=== PATIENT | male | born 1985 | race Caucasian/White ===

== ENCOUNTER 2023-09-29 19:20 | Emergency (ER) | payer BC, SELFPAY ==
[2023-09-29 19:21] VITALS: BP 146/91; PULSE 109; RESP 18; TEMP 37.3; O2SAT 97; BMI 36.1
--- NOTE | 2023-09-29 19:23 | ED.GENADULT ---
HPI - General Adult General Chief complaint: Allergic Reaction Stated complaint: stung by bee, possible allergic reaction Time Seen by Provider: 09/29/23 19:30 Source: patient Mode of arrival: ambulatory Limitations: no limitations History of Present Illness ED Provider: Abner TERRY HPI narrative: 37-year-old male presents status post bee sting to right forearm that occurred at approximately 15:00 today, shortly after the sting, patient took 25 mg of Benadryl. Since then he states he has been having worsening itchy rash, and feels like his throat may be closing. He reports this is the 3rd time he is gotten stung by a bee in it seems to be getting worse every time he is gotten stung. He has not yet seen an allergy and immunology doctor. He does not have an EpiPen at home. Denies chest pain, shortness of breath, nausea, vomiting, abdominal pain, headache, vision changes, dizziness and weakness Related Data Previous Rx's ?Medication ?Instructions ?Recorded diphenhydramine HCl 25 mg capsule 25 mg PO TID PRN allergic reaction 09/29/23 (Benadryl) #20 caps prednisone 20 mg tablet 40 mg (2 x 20 mg) PO DAILY 5 days 09/29/23 #10 tabs Allergies Allergy/AdvReac Type Severity Reaction Status Date / Time bee pollen [bee stings] Allergy Hives Verified 09/29/23 19:24 Review of Systems Review of Systems: Yes all other systems are reviewed and are negative PMFSH Past Medical History Attestation statement: The following information was validated with the patient. Source: old records reviewed and nursing notes reviewed Social History Social History Smoked in Last 30 Days: No Use of substances other than those prescribed or required for medical reasons: No Advance Directives: No Advance Directives Information Provided: No Do you have a plan to hurt others: No Plan Physical Exam ED Vital Signs: Vital Signs - 24 hr 09/29/23 19:21 09/29/23 19:32 Temperature 99.1 F 98.4 F Pulse Rate 109 H 100 Respiratory Rate 18 22 H Blood Pressure 146/91 H 122/72 Pulse Oximetry 97 95 Oxygen Delivery Method Room Air Room Air BMI result Body Mass Index 36.1 vss Appearance: Alert.? Oriented X3.? No acute distress.? Head: Normocephalic, atraumatic, no step-offs or deformities Eyes: Pupils equal, round and reactive to light.? Neck: Normal inspection.? Neck supple.?Patient airway. Speaking in full sentences controlling secretions well. CVS: Normal heart rate and rhythm.? Pulses normal.? Respiratory: No respiratory distress.? Breath sounds normal.? Abdomen: Soft and nontender.? Skin: Skin warm and dry.? Normal skin color.? Normal skin turgor.? + right wheel to right forearm large and urticaria to b/l ue, trunk and le. Extremities: No lower extremity edema.? No calf ttp. 5/5 strength to bilateral upper and lower extremities Back: No midline tenderness, no C-spine tenderness, full range of motion, no CVA tenderness bilaterally Neuro: Oriented X 3.? No motor deficit.? No sensory deficit. CN 2-12 intact Course Course Course Narrative: RME performed by Vickie Gibbs PA-C. Patient is a 37 year old assigned male at presenting to the emergency department after being stung by a bee. Patient states that he was stung by a bee and feels as though his through is more swollen than usual and has hives on his skin. Detailed physical exam and review of systems are deferred to the power digger operator. edge bonder made aware of patient. Reevaluation(s) Reevaluation #1: Patient doing well vital signs stable, saturating 97% on room air. Patent airway. Patient feeling better. EpiPen education gone over with patient. Educated patient on diagnosis and treatment plan, answered all question, patient verbalizes understanding. At this time patient will be discharged home, advised to return with new or worsening symptoms. Educated on worrisome signs and symptoms and when to return. At this time I feel comfortable discharge home. Time: 20:43 Medications Administered Discontinued Medications Generic Name Dose Route Start Last Admin Trade Name Freq PRN Reason Stop Dose Admin Dexamethasone Sodium Phosphate 10 mg 09/29/23 19:34 09/29/23 19:41 Dexamethasone Sod Phosphate 10 Mg/Ml Vial IVPUSH 09/29/23 19:35 10 mg ONCE ONE Administration Diphenhydramine HCl 50 mg 09/29/23 19:34 09/29/23 19:42 Diphenhydramine Hcl 50 Mg/Ml Vial IVPUSH 09/29/23 19:35 50 mg ONCE ONE Administration Famotidine 20 mg 09/29/23 19:34 09/29/23 19:42 Famotidine/Pf 20 Mg/2 Ml Vial IVPUSH 09/29/23 19:35 20 mg ONCE ONE Administration Medical Decision Making Medical Decision Making MDM Narrative: 37-year-old male presents with bee sting to right forearm with subsequent rash throughout body that is itchy. Physical exam? + right wheel to right forearm large and urticaria to b/l ue, trunk and le. History and physical exam concerning for allergic reaction with urticaria. Unlikely anaphylaxis. No signs of acute respiratory distress. Patent airway. No signs of necrosis, SJS, TEN Plan at this time Benadryl, Decadron, Pepcid. Educated on EpiPen use. Patient will likely be discharged home with 1. Differential Diagnosis Differential Diagnoses: The differential diagnosis associated with the presentation includes History and physical exam concerning for allergic reaction with urticaria. Unlikely anaphylaxis. No signs of acute respiratory distress. Patent airway. No signs of necrosis, SJS, TEN Admission/Observation Consideration of admission/observation: Escalation of care including admission/observation considered Un likely Prescription Management I considered prescription management with: Other (epipen and education on use discussed ) Critical Care Time Critical Care Time Critical Care Time: Yes Total Critical Care Time: 35 Attestation: I attest to this time spent taking care of the patient, obtaining history, physical, reviewing labs, imaging, speaking to my attending, specialist or hospitalist. Discharge Plan Discharge Clinical Impression: Allergic reaction, Urticaria Patient Disposition: Home, Self-Care Instructions: Urticaria (ED), Acute Rash (ED), General Allergic Reaction (ED), Allergy Testing (ED) Additional Instructions: Take your medications as prescribed. If you were prescribed antibiotics today, it is important that you take your medication to their entirety, do not skip any doses, do not finish them early. Follow-up with your primary care provider this week. Return to the emergency department with new or worsening symptoms. Such as fevers, chills, chest pain, shortness of breath, nausea, vomiting, dizziness, headache, vision changes, lethargy In case of emergency call 911 Please follow-up with allergy and immunology How to use an EpiPen: ? Place the orange tip against the middle of the outer thigh. ? Swing and push the auto-injector firmly into the thigh until it ?clicks? ? Hold firmly in place for three seconds?count slowly, ?1, 2, 3? An EpiPen has been sent to your pharmacy this should only be used in severe emergency such as inability to breathe trouble speaking, shortness breath or any signs of anaphylaxis as discussed. If he use an EpiPen it is crucial you come in to an emergency department to be evaluated as you can have a rebound effect. Please follow-up with an allergy doctor. Prescriptions: New diphenhydramine HCl [Benadryl] 25 mg capsule 25 mg PO TID PRN (Reason: allergic reaction) Qty: 20 0RF prednisone 20 mg tablet 40 mg PO DAILY 5 Days Qty: 10 0RF [facility]errals: [facility] [Outside] - 1 week Margarito Simms SENIOR CYTOGENETIC TECHNOLOGIST-BC [Primary Care Provider] - 2 days Stand Alone Forms: Work/School Release Print Language: Togolese
[2023-09-29 19:32] VITALS: BP 122/72; PULSE 100; RESP 22; TEMP 36.9; O2SAT 95
[2023-09-29] MEDS: dexAMETHasone sod phosphate 10 MG/ML VIAL IVPUSH (19:41)
[2023-09-29] MEDS: diphenhydrAMINE HCL 50 MG/ML VIAL IVPUSH (19:42)
[2023-09-29] MEDS: Famotidine/PF 20 MG/2 ML VIAL IVPUSH (19:42)
[2023-09-29 21:00] VITALS: BP 122/72; PULSE 100; RESP 22; TEMP 36.9; O2SAT 95
== END 2023-09-29 21:01 | disposition home or self-care (01) ==
PROVIDERS: Emergency Provider Emergency Medicine; PCP Nurse Practitioner Family
DX: L50.0 Allergic urticaria (principal); T63.441A Toxic effect of venom of bees, accidental (unintentional), initial encounter
CPT/HCPCS: 96374; 96375; 99284; J1100; J1200

== ENCOUNTER 2023-10-10 13:00 | Outpatient (AMB) | payer BC, SELFPAY ==
--- NOTE | 2023-10-10 13:03 | MHC.PC.OV ---
Vital Signs 10/10/23 13:06 Height 5 ft 8 in Weight 232 lb BMI 35.3 BP 140/100 H Blood Pressure Location Lt brachial Position Sitting Pulse 68 Pulse Source Pulse Oximeter Pulse Oximetry (%) 96 Oxygen Delivery Method Room Air Intake Visit Reasons: Re establish care, requesting physical Intake Note: Patient here to re establish care. Allergies bee pollen [bee stings] Allergy (Verified 10/10/23 13:48) Hives Tobacco use date assessed: 10/10/23 Dental Screening Dental Screen Date: 10/10/23 Did you have a dental visit in the last 12 months?: Yes Did you have a dental problem in the last 6 months where you did not have access to dental care?: No Was dental information given to patient?: Patient has dentist HPI Re establish care, requesting physical HPI Details Pt is here for a PE. Will order labs. Pt's blood pressure is elevated today. Will have pt monitor his blood pressure at home and drop off readings. Pt reports that he is feeling hungry and shaky today. [facility], [facility] Social History Housing: House Patient Tobacco Use Status: Never used Tobacco service: No Current occupational status: employed Current occupation: [employer] Current occupational exposures/hazards: No Cognitive needs: No Hearing needs: No Vision needs: Yes Questionnaire PHQ-9 Over the last 2 weeks, how often have you been bothered by any of the following problems? 1. Little interest or pleasure in doing things: not at all 2. Feeling down, depressed, or hopeless: not at all 3. Trouble falling or staying asleep, or sleeping too much: not at all 4. Feeling tired or having little energy: not at all 5. Poor appetite or overeating: not at all 6. Feeling bad about yourself - or that you are a failure or have let yourself or your family down: not at all 7. Trouble concentrating on things, such as reading the newspaper or watching television: not at all 8. Moving or speaking so slowly that other people could have noticed. Or the opposite - being so fidgety or restless that you have been moving around a lot more than usual: not at all 9. Thoughts that you would be better off or of hurting yourself in some way: not at all Total score: 0 Depression Screening Interpretation: Negative Depression Screening Done: Yes 37774 - PHQ-9 Billing: Yes Source: Developed by Drs. Akash Goldman, Gracie Garcia, Rodriguez Pruitt and colleagues, with an educational doron from [employer]. Thrive Questionnaire Date Thrive assessed: 10/10/23 I am a: Patient What is your living situation today?: I have a steady place to live Within the past 12 months, did the food you bought not last and you didn't have the money to get more?: Never true Within the past 12 months, did you worry whether your food would run out before you got money to buy more?: Never true Do you have trouble paying for medicines?: No Do you have trouble getting transportation to medical appointments?: No Do you have trouble paying your heating and electricity bill?: No Do you have trouble taking care of your child, family member or friend?: No Do you have trouble with day-to-day activities such as bathing, preparing meals, shopping, managing finances, etc.?: No Are you currently unemployed and looking for a job?: No Are you interested in more education?: No Currently or been in a relationship where the following occur: No concerns reported THRIVE Score: 0 AUDIT C Alcohol Use Questionnaire (AUDIT-C) 1. How often do you have a drink containing alcohol?: Monthly or less 2. How many drinks containing alcohol do you have on a typical day when you are drinking?: 1 or 2 3. How often do you have six or more drinks on one occasion?: Never Total Score: 1 Score Reviewed/Action Taken: No FLIP-7 AMB Questionnaire FLIP-7 Date FLIP - 7 assessed: 10/10/23 Feeling nervous, anxious, or on edge: 0 = Not at all Not being able to stop or control worryin = Not at all Worrying too much about different things: 0 = Not at all Trouble relaxin = Not at all Being so restless that it is hard to sit still: 0 = Not at all Becoming easily annoyed or irritable: 0 = Not at all Feeling afraid as if something awful might happen: 0 = Not at all Total FLIP-7 score (0-4 normal; 5-9 mild; 10-14 moderate; 15-21 severe): 0 Source: Developed by Gracie Mcmahon Kurt Kroenke and colleagues, with an educational doron from [employer]. FLIP-7 Assessment Billing FLIP-7 Assessment Tool: FLIP-7 Assessment 98811 Review of Systems Const Denies chills and Denies fever(s) Eyes Denies blurry vision ENT Denies vertigo, Denies dizziness and Denies sore throat Card Denies chest pain at rest, Denies chest pain with activity, Denies diaphoresis, Denies dyspnea and Denies dyspnea on exertion Resp Denies cough, Denies dyspnea, Denies dyspnea on exertion and Denies wheezing GI Denies abdominal pain, Denies melena, Denies hematochezia, Denies constipation, Denies diarrhea and Denies loose stools Denies hematuria Musc Denies numbness and Denies tingling Skin/Breast Denies lesions Neuro Denies vertigo, Denies dizziness, Denies numbness and Denies tingling Psych Denies anxiety, Denies depression, Denies homicidal ideation, Denies suicidal ideation and Denies other (substance abuse) Aller/Immun Denies wheezing Physical exam (Primary Care) Vital Signs: Last Vital Signs Pulse 68 10/10/23 13:06 BP 140/100 H 10/10/23 13:06 Pulse Ox 96 10/10/23 13:06 Oxygen Delivery Method Room Air 10/10/23 13:06 BMI result Body Mass Index 35.3 Tobacco/Smoking Status: Tobacco use Status Tobacco use date assessed 10/10/23 10/10/23 13:10 Patient Tobacco Use Status Never used Tobacco 10/10/23 13:10 Depression Screening Interpretation: Negative Currently or been in a relationship where the following occur: No concerns reported Const General: cooperative Nutritional Appearance: obese Orientation/consciousness: patient oriented x3 HENMT Head: Yes normal to inspection, Yes normocephalic and Yes atraumatic Ears: TM's normal bilaterally Eyes General: appearance normal, both eyes and all related structures Alignment and Position: alignment normal and position normal Neck Neck: Yes normal visual inspection and Yes no lymphadenopathy Thyroid: Thyroid normal Resp Effort & Inspection: normal respiratory effort Auscultation: clear to auscultation bilaterally Cardio Rate: regular rate Rhythm: regular rhythm Heart sounds: S1 normal heart sound present, S2 normal heart sound present and no murmurs GI Palpation (GI): Soft to palpation and nontender Auscultation: normal bowel sounds Male General Exam: Yes normal external exam Penis: normal penis Scrotum: scrotum normal, testes descended bilaterally and no inguinal hernias Testes: no testicular mass Skin Rashes: no rashes Neuro General: patient oriented x3, moves all extremities, no focal motor deficits and deep tendon reflexes 2+ bilaterally Romberg Test: Negative Psych Appearance: grossly normal Mental Status: mental status grossly normal Speech and movement: Normal speech and movement present Affect: normal affect Attitude: cooperative Thought process: Normal thought process present Thought content: Normal thought content present Insight: Good insight present (Psych) Judgement: Good judgement present (Psych) Assessment and Plan Assessment & Plan (1) Encounter for routine adult physical exam with abnormal findings: Code(s): Z00.01 - Encounter for general adult medical examination with abnormal findings (2) HTN (hypertension): Code(s): I10 - Essential (primary) hypertension Plan: pt will take his BP at home, and drop off values in the near future Plan The patient agreed to the use of a medical reception specialist for this encounter. Scribed for DEB Jacome by hernandez Victor scribe, on 10/10/2023 at 13:15 EST. Orders: Orders Complete Blood Count Auto Diff Today Z00.00 - Encounter for general adult medical examination without abnormal findings TSH reflex Free T4 Today Z00.00 - Encounter for general adult medical examination without abnormal findings UA CC w/rflx Micro + Cult Today Z00.00 - Encounter for general adult medical examination without abnormal findings Lipid Panel Today Z00.00 - Encounter for general adult medical examination without abnormal findings Comprehensive Badger. Panel Fast Today Z00.00 - Encounter for general adult medical examination without abnormal findings Medications: Discontinued diphenhydramine HCl (Benadryl) Discontinued Reason: Patient Completed Course 25 mg PO TID PRN 20 caps 0RF allergic reaction prednisone Discontinued Reason: Patient Completed Course 40 mg (2 x 20 mg) PO DAILY 5 days 10 tabs 0RF Coding Level of Care Code Est Pt Level 3 (27694) New Pt Prev Care 18-39yr(91157 Diagnoses Encounter for routine adult physical exam with abnormal findings Z00.01 HTN (hypertension) I10 Additional Codes FLIP-7 Assessment Billing - FLIP-7 Assessment Tool: FLIP-7 Assessment [id number] ([id number])
[2023-10-10 13:06] VITALS: BP 140/100; PULSE 68; O2SAT 96; BMI 35.3
== END 2023-10-10 13:34 | disposition home or self-care (01) ==
PROVIDERS: PCP Nurse Practitioner Family; Visit Provider Nurse Practitioner Family
DX: Z00.00 Encounter for general adult medical examination without abnormal findings (principal); I10 Essential (primary) hypertension
CPT/HCPCS: 99385

== ENCOUNTER 2024-03-04 13:42 | Outpatient (AMB) | payer BC, SELFPAY ==
--- NOTE | 2024-03-04 13:44 | MHC.PC.OV ---
Vital Signs 03/04/24 13:45 Height 5 ft 8 in Weight 230 lb BMI 35.0 BP 140/90 H Blood Pressure Location Rt brachial Position Sitting Pulse 78 Pulse Source Pulse Oximeter Pulse Oximetry (%) 98 Oxygen Delivery Method Room Air Intake Visit Reasons: 4 month f/u Intake Note: pt is here for 4 month f/up Weight Calculator Required: No Allergies bee pollen [bee stings] Allergy (Verified 03/04/24 13:45) Hives Medication List - Last Reconciled 03/04/24 by RHONA Serra- epinephrine (EpiPen 2-Mac) 0.3 mg (0.3 mL) IM Q4H PRN losartan 25 mg PO DAILY Tobacco use date assessed: 10/10/23 Dental Screening Dental Screen Date: 10/10/23 HPI 4 month f/u HPI Details History of Present Illness The patient is a 38-year-old male presenting with concerns regarding elevated blood pressure and occasional heartburn. The patient reports that he has not previously been on any medication for blood pressure. He noted that today his blood pressure was 140/90 mmHg, which he described as slightly elevated. He has a family history of hypertension, which may contribute to his condition. The patient describes a sensation similar to heartburn, occurring intermittently and without specific triggers, which he associates with eating. He occasionally experiences tiredness during exercise, attributing it to being out of shape rather than cardiac concerns. There have been no prior episodes of chest pain, shortness of breath, or arm pain. The patient also mentions smoking marijuana and acknowledges feeling out of shape, which may be impacting his exercise tolerance. Social History - Family history of hypertension. - Currently sedentary with attempted treadmill exercise. - Reports marijuana use. Review of Systems - Cardiovascular: Denies chest pain and arm pain. - Respiratory: Denies shortness of breath. - Gastrointestinal: Reports occasional heartburn sensation after eating. Physical Exam - Cardiac- Heart sounds normal, S1 is soft, no murmurs detected. - Respiratory- Lungs clear to auscultation without wheezes or rales. - Extremities- No swelling observed. -A+Ox3 Results - Tests and Diagnostics: EKG performed to evaluate cardiac electrical activity; results pending discussion. Plan - Essential Hypertension: Initiate antihypertensive therapy with a low dose of medication 25 mg once daily). The patient is advised to start the medication at night for improved adherence. Evaluate blood pressure trend in two weeks post-initiation and repeat labs after this period. - Gastroesophageal Reflux Disease GERD): No specific intervention was recommended at this time as symptoms do not appear to significantly impact daily activities; monitor symptoms and consider dietary modifications as needed. Pt will contact me with BPs sustaining above 140/90 Patient was informed and verbally consented to the use of an ambient scribe for clinic note documentation during this visit. Discussion Notes I discussed with the patient the diagnosis of essential hypertension and the potential benefits of starting a low-dose antihypertensive medication to manage his blood pressure. We reviewed the family history of hypertension and its contribution to his condition. I reassured him about the absence of significant findings on his initial examination and EKG, which showed no immediate cardiac concerns (NSR). We discussed that the heartburn-like sensation could be related to diet and lifestyle, potentially indicative of gastroesophageal reflux disease, and that it warrants monitoring. Patient Instructions - Begin taking the prescribed antihypertensive medication at 25 mg once daily, preferably at night. - Schedule follow-up labs to assess blood pressure control two weeks after starting the medication. - Monitor diet and lifestyle to help reduce heartburn symptoms; consider dietary modifications. - Engage in regular physical exercise tailored to his comfort level to improve cardiovascular health. - Return for further evaluation if he experiences any alarming symptoms such as chest pain or shortness of breath. [facility] Surgical History (Updated 03/04/24 @ 13:46 by Jeffrey Rosas [facility]) No pertinent past surgical history Family History (Updated 03/04/24 @ 13:47 by Jeffrey Rosas CMA) Mother No problems noted. Father High blood pressure Social History Housing: House Patient Tobacco Use Status: Never used Tobacco service: No Current occupational status: employed Current occupation: [employer] Current occupational exposures/hazards: No Cognitive needs: No Hearing needs: No Vision needs: Yes Questionnaire PHQ-9 Over the last 2 weeks, how often have you been bothered by any of the following problems? 1. Little interest or pleasure in doing things: not at all 2. Feeling down, depressed, or hopeless: not at all 3. Trouble falling or staying asleep, or sleeping too much: not at all 4. Feeling tired or having little energy: not at all 5. Poor appetite or overeating: not at all 6. Feeling bad about yourself - or that you are a failure or have let yourself or your family down: not at all 7. Trouble concentrating on things, such as reading the newspaper or watching television: not at all 8. Moving or speaking so slowly that other people could have noticed. Or the opposite - being so fidgety or restless that you have been moving around a lot more than usual: not at all 9. Thoughts that you would be better off or of hurting yourself in some way: not at all Total score: 0 Source: Developed by Drs. Akash Goldman, Gracie Garcia, Rodriguez Pruitt and colleagues, with an educational doron from [employer]. Thrive Questionnaire Date Thrive assessed: 10/10/23 I am a: Patient What is your living situation today?: I have a steady place to live Within the past 12 months, did the food you bought not last and you didn't have the money to get more?: Often true Within the past 12 months, did you worry whether your food would run out before you got money to buy more?: Never true Do you have trouble paying for medicines?: No Do you have trouble getting transportation to medical appointments?: No Do you have trouble paying your heating and electricity bill?: No Do you have trouble taking care of your child, family member or friend?: No Do you have trouble with day-to-day activities such as bathing, preparing meals, shopping, managing finances, etc.?: No Are you currently unemployed and looking for a job?: No Are you interested in more education?: No Please select the resources that you would like help with: None Currently or been in a relationship where the following occur: No concerns reported THRIVE Score: 1 AUDIT C Alcohol Use Questionnaire (AUDIT-C) 1. How often do you have a drink containing alcohol?: 2-4 times a month 2. How many drinks containing alcohol do you have on a typical day when you are drinking?: 3 or 4 3. How often do you have six or more drinks on one occasion?: Less than monthly Total Score: 4 FLIP-7 AMB Questionnaire FLIP-7 Date FLIP - 7 assessed: 10/10/23 Feeling nervous, anxious, or on edge: 0 = Not at all Not being able to stop or control worryin = Not at all Worrying too much about different things: 0 = Not at all Trouble relaxin = Not at all Being so restless that it is hard to sit still: 0 = Not at all Becoming easily annoyed or irritable: 0 = Not at all Feeling afraid as if something awful might happen: 0 = Not at all Total FLIP-7 score (0-4 normal; 5-9 mild; 10-14 moderate; 15-21 severe): 0 Source: Developed by Drs. Akash Goldman, Gracie Garcia, Rodriguez Pruitt and colleagues, with an educational doron from [employer]. Physical exam (Primary Care) Vital Signs: Last Vital Signs Pulse 78 03/04/24 13:45 BP 140/90 H 03/04/24 13:45 Pulse Ox 98 03/04/24 13:45 Oxygen Delivery Method Room Air 03/04/24 13:45 BMI result Body Mass Index 35.0 Tobacco/Smoking Status: Tobacco use Status Tobacco use date assessed 10/10/23 03/04/24 13:48 Patient Tobacco Use Status Never used Tobacco 03/04/24 13:48 PHQ-9: PHQ-9 Score PHQ-9: Total score 0 03/04/24 13:48 Thrive Assessment: Date of Thrive Assessment Date Thrive assessed 10/10/23 03/04/24 13:48 Currently or been in a relationship where the following occur: No concerns reported Coding Level of Care Code Est Pt Level 3 (46897) Diagnoses HTN (hypertension) I10 Chest discomfort R07.89 Assessment & Plan Assessment & Plan (1) HTN (hypertension): Code(s): I10 - Essential (primary) hypertension Category: Medical (2) Chest discomfort: Code(s): R07.89 - Other chest pain Category: Medical Plan . Orders: Orders AMB EKG-In Office Today I10 - Essential (primary) hypertension, R07.89 - Other chest pain Medications: New losartan 25 mg PO DAILY 90 tabs 0RF
[2024-03-04 13:45] VITALS: BP 140/90; PULSE 78; O2SAT 98; BMI 35.0
== END 2024-03-04 14:44 | disposition home or self-care (01) ==
PROVIDERS: PCP Nurse Practitioner Family; Visit Provider Nurse Practitioner Family
DX: I10 Essential (primary) hypertension (principal); R07.89 Other chest pain

== ENCOUNTER → 2024-03-04 13:42 | Outpatient (BNVA) | payer BC, SELFPAY | PROVIDERS: PCP Nurse Practitioner Family; Visit Provider Nurse Practitioner Family ==

== ENCOUNTER 2024-09-28 10:38 | Outpatient (REF) | payer BC, SELFPAY ==
[2024-09-28 13:59] LABS: MANUAL DIFF FLAG NO
[2024-09-28 14:08] LABS: Basophils Absolute Auto 0.1 X10*3/uL (0.0-0.2); Basophils Percent Auto 0.9 % (0-2); Eosinophils Absolute Auto 0.1 X10*3/uL (0.0-0.4); Eosinophils Percent Auto 0.8 % (0-4); Hematocrit 44.6 % (42.0-52.0); Hemoglobin 15.5 g/dl (14.0-18.0); Imm Gran Abs Auto 0.01 X10*3/uL (0.00-0.03); Imm Gran Pct Auto 0.1 % (0.0-0.4); Lymphocytes Absolute Auto 2.1 X10*3/uL (1.2-4.9); Lymphocytes Percent Auto 28.3 % (20-40); Mean Corpuscular HGB Conc 34.8 g/dl (31.0-36.0); Mean Corpuscular Hemoglobin 28.8 pg (27.0-33.0); Mean Corpuscular Volume 82.7 fL (80.0-98.0); Mean Platelet Volume 10.6 fL (9.4-12.4); Monocytes Absolute Auto 0.6 X10*3/uL (0.1-1.2); Monocytes Percent Auto 8.5 % (2-11); Neutrophils Absolute Auto 4.5 x10*3/uL (2.0-8.3); Neutrophils Percent Auto 61.4 % (45-73); Platelet Count 322 X10*3/uL (160-400); Red Blood Count 5.39 X10*6/uL (4.60-5.80); Red Cell Distribution Width 13.1 % (11.0-16.0); White Blood Count 7.4 X10*3/uL (4.8-10.8)
[2024-09-28 14:08] LABS: Appearance Urine Clear; Color Urine Yellow; Glucose Urine UA Negative (Negative); Leukocyte Esterase Urine Negative (Negative); Nitrite Urine Negative (Negative); PH 5.5 (5.0-9.0); Specific Gravity - Urine 1.025 (1.005-1.025); UMIC TRIGGER UACC YES; Urine Blood Large (3+) (Negative); Urine Ketones Negative (Negative); Urine Protein Trace mg/dL (Neg-Trace)
[2024-09-28 14:24] LABS: Bacteria Urine None Seen (None Seen); Hyaline Casts Urine 0-2 /LPF (0-2); Squamous Epithelial Cell Urine 0-2 /HPF (0-2); WBC Urine 0-5 /HPF (0-5)
[2024-09-28 18:10] LABS: Alanine Aminotransferase 34 U/L (0-40); Albumin Level 4.5 g/dL (3.5-5.0); Alkaline Phosphatase 51 U/L (39-117); Anion Gap 14 (12-20); Aspartate Amino Transferase 33 U/L (5-37); Bilirubin Total 0.6 mg/dL (0.0-1.0); Blood Urea Nitrogen 19 mg/dL (9-16); Calcium 9.1 mg/dL (8.4-10.2); Carbon Dioxide 24 mmol/L (22-29); Chloride 106 mmol/L (96-108); Cholesterol 204 mg/dL (<200); Estimated Glomerular Filt Rate > 60; Glucose Fasting 104 mg/dL (60-99); HDL Cholesterol 37 mg/dL (>40); LDL Cholesterol Calculated 150 mg/dL (<100); Potassium 3.8 mmol/L (3.3-5.1); Sodium 140 mmol/L (135-145); Total Protein 7.7 g/dL (6.5-8.0); Triglycerides 85 mg/dL (<150)
[2024-09-28 18:27] LABS: TSH reflex Free T4 1.63 uIU/mL (0.32-4.0)
== END 2024-09-28 10:39 | disposition home or self-care (01) ==
LOC: HO.HMGCLDS 10:38
PROVIDERS: PCP Nurse Practitioner Family; Visit Provider Nurse Practitioner Family
DX: Z00.00 Encounter for general adult medical examination without abnormal findings (principal); Z13.6 Encounter for screening for cardiovascular disorders
CPT/HCPCS: 36415; 80053; 80061; 81001; 84443; 85025

== ENCOUNTER 2024-10-01 10:15 | Outpatient (REF) | payer BC, SELFPAY ==
[2024-10-01 13:24] LABS: Appearance Urine Turbid; Glucose Urine UA Negative (Negative); PH 5.5 (5.0-9.0); Specific Gravity - Urine 1.025 (1.005-1.025); UMIC TRIGGER UACC YES
== END 2024-10-01 10:16 | disposition home or self-care (01) ==
LOC: HO.HMGCLDS 10:15
PROVIDERS: PCP Nurse Practitioner Family; Visit Provider Nurse Practitioner Family
DX: Z00.01 Encounter for general adult medical examination with abnormal findings (principal); R31.29 Other microscopic hematuria; R06.83 Snoring; G47.30 Sleep apnea, unspecified; Z13.31 Encounter for screening for depression; Z13.30 Encounter for screening examination for mental health and behavioral disorders, unspecified
CPT/HCPCS: 81001; 87086; 88112; 96127

== ENCOUNTER 2024-10-01 10:15 | Outpatient (AMB) | payer BC, SELFPAY ==
[2024-10-01 10:18] VITALS: BP 138/82; PULSE 65; O2SAT 95; BMI 36.0
--- NOTE | 2024-10-01 10:18 | MHC.PC.OV ---
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: No Accompanied by: Self / Same As Patient Allergies bee pollen (bee stings) Allergy (Verified 10/01/24 10:19) Hives Medication List - Last Reconciled 10/01/24 by DEB Serra epinephrine (EpiPen 2-Mac) 0.3 mg (0.3 mL) IM Q4H PRN losartan 25 mg PO DAILY Tobacco use date assessed: 10/01/24 Dental Screening Dental Screen Date: 10/01/24 Did you have a dental visit in the last 12 months?: Yes Did you have a dental problem in the last 6 months where you did not have access to dental care?: No Was dental information given to patient?: Patient has dentist HPI Annual PE/follow up HPI Details History of Present Illness The patient is a 38-year-old male presenting for a physical exam and evaluation of his weight and urinary symptoms. The patient has a history of microscopic hematuria, which was evaluated many years ago by a urologist (pt reported). No cystoscopy was performed at that time, and he denies any history of kidney stones. He reports no costovertebral angle tenderness on examination. The patient is overweight, and the importance of proper diet and portion sizes was discussed during the visit. He has never smoked tobacco but occasionally uses marijuana. The patient reports excessive snoring and episodes of apnea during sleep, as observed by his . Health Maintenance - Discussed importance of proper diet and portion sizes for weight management Social History - Substance use: Occasional marijuana use, never smoked tobacco Review of Systems - Genitourinary: Reports microscopic hematuria, denies history of kidney stones - Respiratory: Reports excessive snoring and apnea during sleep denies any cp, sob, blurred vision, urinary issues, constipation, diarrhea., si or hi Physical Exam General: Cooperative, healthy appearing, comfortable, no acute distress, well developed, currently overweight Orientation: Patient oriented x3 Limitations: No limitations Head: Normal to inspection Ears: Hearing grossly normal bilaterally Nose: Normal external nose present Face and sinus: Normal facial exam Eyes: Appearance normal, both eyes and all related structures Neck: Normal visual inspection and Yes full ROM Respiratory: Normal respiratory effort and able to speak in complete sentences. Clear to auscultation bilaterally Cardiovascular: Regular rate and rhythm. Normal S1 and S2 GI: Normal to inspection. Soft to palpation and nontender. No CVA tenderness on exam : Testicles without masses/lesions and no hernias appreciated. History of microscopic hematuria and cyst Skin: No rashes or lesions noted Neuro: Patient oriented x3 Extremities: Normal to inspection Results Plan A comprehensive urinary workup will be conducted, including cytology, urine culture, and another urinalysis, to further evaluate the microscopic hematuria. A CT urogram will be obtained, and the patient will be referred to urology for further assessment. For the patient's excessive snoring and apnea, a referral to sleep medicine will be made for further evaluation and treatment. The patient was advised on the importance of maintaining a proper diet and portion control to address his overweight status. Discussion Notes I discussed with the patient the need for a comprehensive urinary workup, including cytology, urine culture, and urinalysis, to evaluate his microscopic hematuria. I also explained the plan to obtain a CT urogram and refer him to urology for further evaluation. Regarding his snoring and apnea, I recommended a referral to sleep medicine for further evaluation and treatment. We discussed the importance of proper diet and portion control to manage his weight. Patient Instructions - Follow up with urology for further evaluation of urinary symptoms - Attend sleep medicine consultation for snoring and apnea - Maintain a balanced diet and monitor portion sizes to manage weight PFSH Surgical History No pertinent past surgical history Family History Mother No problems noted. Father High blood pressure Social History Housing: House Patient Tobacco Use Status: Never used Tobacco service: No Current occupational status: employed Current occupation: [employer] Current occupational exposures/hazards: No Cognitive needs: No Hearing needs: No Vision needs: Yes Questionnaire PHQ-9 Over the last 2 weeks, how often have you been bothered by any of the following problems? 1. Little interest or pleasure in doing things: not at all 2. Feeling down, depressed, or hopeless: not at all 3. Trouble falling or staying asleep, or sleeping too much: not at all 4. Feeling tired or having little energy: not at all 5. Poor appetite or overeating: not at all 6. Feeling bad about yourself - or that you are a failure or have let yourself or your family down: not at all 7. Trouble concentrating on things, such as reading the newspaper or watching television: not at all 8. Moving or speaking so slowly that other people could have noticed. Or the opposite - being so fidgety or restless that you have been moving around a lot more than usual: not at all 9. Thoughts that you would be better off or of hurting yourself in some way: not at all Total score: 0 Depression Screening Interpretation: Negative Depression Screening Done: Yes 93066 - PHQ-9 Billing: Yes Source: Developed by Drs. Akash Goldman, Gracie Garcia, Rodriguez Pruitt and colleagues, with an educational doron from [employer]. Thrive Questionnaire Date Thrive assessed: 10/01/24 I am a: Patient What is your living situation today?: I have a steady place to live Within the past 12 months, did the food you bought not last and you didn't have the money to get more?: Never true Within the past 12 months, did you worry whether your food would run out before you got money to buy more?: Never true Do you have trouble paying for medicines?: No Do you have trouble getting transportation to medical appointments?: No Do you have trouble paying your heating and electricity bill?: No Do you have trouble taking care of your child, family member or friend?: No Do you have trouble with day-to-day activities such as bathing, preparing meals, shopping, managing finances, etc.?: No Are you currently unemployed and looking for a job?: No Are you interested in more education?: No Please select the resources that you would like help with: None Currently or been in a relationship where the following occur: No concerns reported THRIVE Score: 0 AUDIT C Alcohol Use Questionnaire (AUDIT-C) 1. How often do you have a drink containing alcohol?: 2-4 times a month 2. How many drinks containing alcohol do you have on a typical day when you are drinking?: 5 or 6 3. How often do you have six or more drinks on one occasion?: Less than monthly Total Score: 5 Score Reviewed/Action Taken: Yes FLIP-7 AMB Questionnaire FLIP-7 Date FLIP - 7 assessed: 10/01/24 Feeling nervous, anxious, or on edge: 0 = Not at all Not being able to stop or control worryin = Not at all Worrying too much about different things: 0 = Not at all Trouble relaxin = Not at all Being so restless that it is hard to sit still: 0 = Not at all Becoming easily annoyed or irritable: 0 = Not at all Feeling afraid as if something awful might happen: 0 = Not at all Total FLIP-7 score (0-4 normal; 5-9 mild; 10-14 moderate; 15-21 severe): 0 Source: Developed by Drs. Akash Goldman, Gracie Garcia, Rodriguez Pruitt and colleagues, with an educational doron from [employer]. FLIP-7 Assessment Billing FLIP-7 Assessment Tool: FLIP-7 Assessment 87148 Physical exam (Primary Care) Vital Signs: Last Vital Signs Pulse 65 10/01/24 10:18 BP 138/82 10/01/24 10:18 Pulse Ox 95 10/01/24 10:18 Oxygen Delivery Method Room Air 10/01/24 10:18 BMI result Body Mass Index 36.0 Tobacco/Smoking Status: Tobacco use Status Tobacco use date assessed 10/01/24 10/01/24 10:19 Patient Tobacco Use Status Never used Tobacco 10/01/24 10:19 PHQ-9: PHQ-9 Score PHQ-9: Total score 0 10/01/24 10:19 Depression Screening Interpretation: Negative Thrive Assessment: Date of Thrive Assessment Date Thrive assessed 10/01/24 10/01/24 10:19 Currently or been in a relationship where the following occur: No concerns reported Coding Level of Care Code Est Pt Level 3 (50691) Est Pt Prev Care 18-39y(82683) Diagnoses Microscopic hematuria R31.29 Encounter for routine adult physical exam with abnormal findings Z00.01 Vasectomy evaluation Z30.09 Snores R06.83 Sleep apnea G47.30 Additional Codes LFIP-7 Assessment Billing - FLIP-7 Assessment Tool: FLIP-7 Assessment 60925 ([id number]) PHQ-9 - 86782 - PHQ-9 Billing: Yes ([id number]) Assessment & Plan Assessment & Plan (1) Microscopic hematuria: Code(s): R31.29 - Other microscopic hematuria Category: Medical (2) Encounter for routine adult physical exam with abnormal findings: Code(s): Z00.01 - Encounter for general adult medical examination with abnormal findings Category: Medical (3) Vasectomy evaluation: Code(s): Z30.09 - Encounter for other general counseling and advice on contraception Category: Medical (4) Snores: Code(s): R06.83 - Snoring Category: Medical (5) Sleep apnea: Code(s): G47.30 - Sleep apnea, unspecified Category: Medical Plan . Orders: Orders UA CC w/rflx Micro + Cult Today R31.29 - Other microscopic hematuria Urine Cytology Today R31.29 - Other microscopic hematuria CT urogram Today R31.29 - Other microscopic hematuria Urine Culture Today R31.29 - Other microscopic hematuria Referrals Urology Referral R31.29 - Other microscopic hematuria, Z30.09 - Encounter for other general counseling and advice on contraception Sleep Medicine Referral G47.30 - Sleep apnea, unspecified, R06.83 - Snoring
--- OUTSIDE RECORDS SUMMARY | 2024-10-01 11:22 | XMS_ITS | Data Portability ---
Author Organization [facility], [address] Address [address] [place] [id number] Care Team Providers Care Videogame Tester Name Role Phone [facility] Primary Care Provider Assessment No assessment recorded. Plan of Treatment Reminders Order Date Submit Date Provider Last Modified By Organization Details Last Modified Time Details Appointments None recorded. Lab None recorded. Referral None recorded. Procedures None recorded. Surgeries None recorded. Imaging None recorded. Medication Orders ciprofloxac in 0.3 % eye drops 2022 023 [id number], [address] [place], [address], 09:37:27 Patient TargetsNo targets recorded. Patient Instructions Encounter Date Encounter Id Patient Instructions Last Modified By Organization Details Last Modified Time 10/10/2022 [id number] [place]: care instructions [email or web address] Not available 10/10/2022 09:37:58 allergic conjunctivitis in teens: care instructions [email or web address] Not available 10/10/2022 09:37:58 Aside from havin g an infectious conjunctivitis you may also be having a sensitivity to the drops you were using or to something you came in contact with yesterday while doing yard work. Use the antibiotic drops as prescribed. Take an over the counter antihistamine such as claritin or zyrtec per package instructions. See printed instructions. Follow-up with your doctor or return to [facility] for evaluation if no improvement in 2 days. Cool compresses to your eyes may help reduce the swelling. Seek Emergency Medical evaluation for any worsening symptoms. [email or web address] Not available 10/10/2022 09:41:02 Reason for Referral None Reported. Medical Equipment None Reported. Allergies No known drug allergies Medications Name Sig Start Date Stop Date Status Note LastModified by Organization Details LastModified Time amoxicillin 500 mg capsule TAKE 1 CAPSULE BY MOUTH EVERY 8 HOURS UNTIL FINISHED 10/10 completed Not Available Not Available Not Available ibuprofen 800 mg tablet TAKE 1 TABLET BY MOUTH EVERY 6-8 HOURS NEEDED 10/10 completed Not Available Not Available Not Available ciprofloxac in 0.3 % eye drops INSTILL 1 DROP INTO AFFECTED EYE(S) BY OPHTHALMI C ROUTE EVERY 2 HOURSWHIL E AWAKE FOR 2 DAYS THEN 1 DROP EVERY 4 HRS WHILE AWAKE FOR 5 DAYS 2022 active Not Available Not Available Not Avai lable Flowflex COVID-19 Antigen Home Test kit DIRECTED 10/10 completed Not Available Not Available Not Available Vitals Date Recorded Body height Body mass index (BMI) Body weight Respiratory rate Body temperature Oxygen saturation Oxygen saturation in Arterial blood by Pulse oximetry Heart rate Systolic blood pressure Diastolic blood pressure Provider Name and Address Organization Details Last Updated DateTime 3 172.72 cm 33.5 kg/m2 33859.3 2 g 16 /min 98.1 [degF] 96 % 96 % 74 /min 133 mm[Hg] 93 mm[Hg] LEIGHANN MARINELLI PA - [facility] 3 09:01:09 Social History Question Answer Notes LastModified by Burstly Details LastModified Time Which Illicit Or Recreational Drugs Have You Used? Tyler [email or web address] Information not available 10/10/2022 Sex: Unknown Functional Status Question Answer Note LastModified by Burstly Details LastModified Time How many times per week do you consume alcohol? 1-2 times per week [email or web address] Information not available 10/10/2022 Do you use any illicit or recreational drugs? Yes [email or web address] Information not available 10/10/2022 Do you or have you ever used any other forms of tobacco or nicotine? No [email or web address] Information not available 10/10/2022 What is your level of alcohol consumption? Moderate Information not available 10/10/2022 Mental Status None recorded. Family History Nothing Reported. Medical History Condition Response Gout N Cancer, liver N Thyroid disorder N Hyperthyroidism N Rheumatoid arthritis N GI bleeding N Irritable bowel syndrome N Depression N COPD N Tinnitus, unspecified ear N Pneumonia N Cancer, uterus N Mental disorder, NOS N Headaches/Migraines N Insomia N Alzheimer's disease N Anxiety Disorder N Obesity N Arthritis N Cancer N Stroke N Alcohol abuse N Liver disease N Cancer, bladder N Allergy Food/Medication N Peripheral artery disease N Oxygen dependence N Fibromyalgia N Atrial fibrillation N Tinnitus, right ear N Kidney Disease N Deep vein thrombosis DVT leg N Migraine N Disorder of circulatory system N Anxiety N Cancer, brain N Disease of pancreas N Cancer, lung N Eating disorder, unspecified N Cancer, colon N Crohn's disease N Cancer, cervical N N Cancer, breast N Cancer, skin N Coagulation defect, unspecified N Cataract N Asthma N Congestive heart failure (CHF) N Substance Abuse N Vertigo N Coronary artery disease N Pulmonary Embolism N Cancer, pancreas N Tobacco use disorder N Disease of lung N Allergic rhinitis N Joint disorder, unspecified N Menopause N Back disorder N Drug dependence, unspecified N Hypothyroidism N Disorder kidney N Sickle Cell Anemia N Pollard's Palsy N Cancer, ovarian N Disorder of eye N Cancer, prostate N Allergy Seasonal N Disorder of lymph system N Disorder of urinary system N Drug abuse N Radiculopathy, site unspecified N Myoneural disorder, unspecified N Nervous system disorder N ADHD N High Cholesterol N Post-herpetic neuralgia N Aneurysm, cerebral N Tinnitus, left ear N Prostate hypertrophy, benign N Disorder of skin/subcutaneous N Osteoarthritis N Disorder of ear N Ovarian cysts N Parkinson's disease N Low back pain N Carpal tunnel syndrome N Anemia N Disorder of muscle N Kidney stone N Bipolar affective disorder N Leukemia, unspecified N Diabetes N Disorder involving the immune mechanism N Endocrine disorder N Seizure N Hyperlipidemia N Eczema N Emphysema, unspecified N Lymphoma N Dementia N Diverticulitis N Lupus N Seizure disorder N Reflux/GERD N Sleep Apnea N Cancer, bone N Cardiac arrhythmia, unspecified N Disorder of thyroid N Disorder of bone N Heart Disease N Disorder of brain N Liver Disorder N Aneurysm, aortic N Hypertension N Osteoporosis N Disease of digestive system, unspecified N Gastroesophageal reflux (GERD) N Past Encounters Encounter ID Performer Location Encounter Start Date Encounter Closed Date Diagnosis/Indication Diagnosis SNOMED-CT Code Diagnosis ICD10 Code Diagnosis Note [id number] [address] [address] 06/19/2017 14:46:56 06/19/2017 15:29:52 [id number] Erika Peace MD [address] [place] [address] 10/10/2022 08:23:27 10/10/2022 09:44:56 Acute conjunctivitis of bilateral eyes 8671954704 19849 H10.33 Health Concerns Section Related Observation LastModified by Organization Detai ls LastModified Time None Recorded Concern Status LastModified by Organization Details LastModified Time None Recorded Advance Directives Directive None Recorded Payers Insurance Date Sequence Insurance Name Policy Number Policy Flower Covered Member ID Flower Member ID Guarantor Name 10/27/2022 1 [place] [id number] Michael B Dubuc [id number] Michael Dubuc 10/27/2022 1 [place] [facility] (HMO) [id number] Michael B Dubuc [id number] Michael Dubuc Notes Date Note Type Note Provider Name and Address Organization Details Recorded Time 3 text/html Eye problemsReported bypatient.source of patient informationInformation obtained from patient; Patient arrived at Urgent Care ambulatory Location:bilateral Eye Symptoms:no sensitivity to light; no pain in the eyes; no blurred vision;redness;discharge; Irritation. Mild itching. Severity:moderate Onset/Timindays Context:Son recently had pink-eye. Worked in yard yesterday. No foreign body sensation, eye trauma, contact lens use or chemical exposure. Modifying Factors:nothing gives relief; Used son's polytrim eye drops last night and this morning without improvement.Notes:36 year old male presenting for evaluation of bilateral eye redness, irritation, mild itching, crusty yellow drainage and eyelid swelling for one day. He was working in his yard prior to the onset of symptoms. His son recently was treated for pink-eye. No blurry vision (usually wears glasses but did not have them for eye chart exam). No fever, chills. He has a runny nose. No rash. No foreign body sensation, contact lens use, eye trauma, chemical exposure. No photophobia. Erika Peace MD [address] [place], [place] [address] [place], [address], [place] - [facility] 10/10/2022 09:48:20
== END 2024-10-01 10:57 | disposition home or self-care (01) ==
LOC: HO.HMCC 10:16
PROVIDERS: PCP Nurse Practitioner Family; Visit Provider Nurse Practitioner Family
DX: Z00.01 Encounter for general adult medical examination with abnormal findings (principal); R31.29 Other microscopic hematuria; Z30.09 Encounter for other general counseling and advice on contraception; R06.83 Snoring; G47.30 Sleep apnea, unspecified

== ENCOUNTER 2024-11-12 07:00 | Outpatient (AMB) | payer BC, SELFPAY ==
--- NOTE | 2024-11-12 07:58 | MHC.PC.OV ---
Intake Visit Reasons: medication Allergies bee pollen (bee stings) Allergy (Verified 11/12/24 07:59) Hives Medication List - Last Reconciled 11/12/24 by DEB Serra epinephrine (EpiPen 2-Mac) 0.3 mg (0.3 mL) IM Q4H PRN losartan 25 mg PO DAILY semaglutide (weight loss) (Wegovy) 0.25 mg (0.5 mL) subcut QWEEK Tobacco use date assessed: 10/01/24 Dental Screening Dental Screen Date: 10/01/24 HPI medication HPI Details History of Present Illness The patient is a 39-year-old male presenting for a telehealth consultation to discuss weight loss medication. He reports contacting his pharmacy and confirms that Wegovy is covered by his insurance. His BMI is above 36, classifying him as obese, and he denies any family history of thyroid cancer or personal history of pancreatitis. The patient hopes that the medication will help him initiate healthier eating habits and reduce portion sizes. He aims to eventually manage his weight loss independently without medication. Medication may eventually help with his snoring (due to weight loss) Review of Systems - Endocrine: Denies family history of thyroid cancer. - Gastrointestinal: Denies history of pancreatitis. -denies any cp or sob Plan The patient will be prescribed Wegovy to assist with weight loss, as it is covered by his insurance. The patient is advised to use this medication as a tool to help initiate healthier eating habits and reduce portion sizes. He is encouraged to aim for long-term weight management without reliance on medication. The patient will contact the clinician with any further questions or concerns. Discussion Notes I discussed with the patient the use of Wegovy as a weight loss medication, confirming its coverage by his insurance. We talked about using the medication to help establish healthier eating habits and reduce portion sizes. The patient understands the goal of eventually managing weight loss independently without medication. Patient Instructions - Take Wegovy as prescribed to assist with weight loss. - Focus on establishing healthier eating habits and reducing portion sizes. - Contact the clinician with any questions or concerns. [facility] Surgical History No pertinent past surgical history Family History Mother No problems noted. Father High blood pressure Social History Housing: House Patient Tobacco Use Status: Never used Tobacco service: No Current occupational status: employed Current occupation: [employer] Current occupational exposures/hazards: No Cognitive needs: No Hearing needs: No Vision needs: Yes Questionnaire Thrive Questionnaire Date Thrive assessed: 10/01/24 I am a: Patient What is your living situation today?: I have a steady place to live Within the past 12 months, did the food you bought not last and you didn't have the money to get more?: Never true Within the past 12 months, did you worry whether your food would run out before you got money to buy more?: Never true Do you have trouble paying for medicines?: No Do you have trouble getting transportation to medical appointments?: No Do you have trouble paying your heating and electricity bill?: No Do you have trouble taking care of your child, family member or friend?: No Do you have trouble with day-to-day activities such as bathing, preparing meals, shopping, managing finances, etc.?: No Are you currently unemployed and looking for a job?: No Are you interested in more education?: No Please select the resources that you would like help with: None Currently or been in a relationship where the following occur: No concerns reported THRIVE Score: 0 LFIP-7 AMB Questionnaire FLIP-7 Date FLIP - 7 assessed: 10/01/24 Source: Developed by Drs. Akash Goldman, Gracie Garcia, Rodriguez Pruitt and colleagues, with an educational doron from [employer]. Physical exam (Primary Care) Tobacco/Smoking Status: Tobacco use Status Tobacco use date assessed 10/01/24 10/01/24 10:19 Patient Tobacco Use Status Never used Tobacco 10/01/24 10:19 Thrive Assessment: Date of Thrive Assessment Date Thrive assessed 10/01/24 10/01/24 10:19 Currently or been in a relationship where the following occur: No concerns reported Telehealth Telehealth Telehealth [facility] Location of provider rendering services: practice address Location of patient: address on file Patient Identification confirmed using: Name, : Yes Telehealth method: video Patient verbally consented to treatment: Yes Patient verbally consented to billing insurance company: Yes Patient informed of any privacy concerns related to visit: Yes Minutes spent on Phone/Video with Pt.: 10 Coding Level of Care Code Tele Est Pt Level 3 (42859) Diagnoses Obesity (BMI 30-39.9) E66.9 Snores R06.83 Assessment & Plan Assessment & Plan (1) Obesity (BMI 30-39.9): Code(s): E66.9 - Obesity, unspecified Category: Medical (2) Snores: Code(s): R06.83 - Snoring Category: Medical Plan . Medications: New semaglutide (weight loss) (Jacquelinevedu) administer weeks 1 through 4 of therapy 0.25 mg (0.5 mL) subcut QWEEK 2 mL 0RF
== END 2024-11-12 09:17 | disposition home or self-care (01) ==
LOC: HO.HMCC 07:00
PROVIDERS: PCP Nurse Practitioner Family; Visit Provider Nurse Practitioner Family
DX: R06.83 Snoring (principal); E66.9 Obesity, unspecified

== ENCOUNTER 2024-12-10 15:19 | Outpatient (AMB) | payer BC, SELFPAY ==
--- NOTE | 2024-12-10 15:25 | MHC.OFFVIS ---
Intake Visit Reasons: microscopic hematuria Intake Note: Patient is present for MICROSCOPIC HEMATURIA Urology Medication:NONE Antibiotic Allergy:NONE Blood Thinner:NONE TODAY'S PVR:0ML'S Toggler Required: No Allergies bee pollen (bee stings) Allergy (Verified 12/10/24 21:02) Hives Medication List - Last Reconciled 12/10/24 by RHONA Mahoney-KYLE epinephrine (EpiPen 2-Mac) 0.3 mg (0.3 mL) IM Q4H PRN losartan 25 mg PO DAILY semaglutide (weight loss) 0.5 mg (0.5 mL) subcut QWEEK HPI Comments Details: Michael is a pleasant 39-year-old male patient of Dr. Willis. He presents to the office today as a new patient for microscopic hematuria as well as vasectomy evaluation. He reports noting over the last couple years he has been told he has had microscopic hematuria. He reports most recently as followed up with his PCP and recommendations were made for urology referral for further assessment evaluation. 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 He denies any known workplace chemical exposure. In office urinalysis results reviewed with the patient today 3+ microscopic hematuria. When asked he denies any bothersome urinary issues. He denies urinary urgency, urinary frequency, incontinence, nocturia, hematuria, dysuria, foul smelling urine, changes to urinary stream, flank pain, fever, and or chills. He is happy with his current voiding parameters. We did discuss potential causes of microscopic hematuria. I discussed reasons for blood in the urine may include but are not limited to kidney stones, cancer in the urinary tract, BPH, kidney stone disease or inflammatory conditions of the urinary tract. I have discussed workup to include cystoscopy evaluation. Vasectomy evaluation The patient presents for vasectomy consultation.? 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 The vasectomy may be complicated due to a history of no complicating issues. Patient education has been provided via AUA video, via printed information, risks of failure, recovery time, bruising and potential pain syndrome have been stressed Discussion today focused on the presence of vasectomy and the risks, benefits and alternatives that are available. Vasectomy as intended as a permanent form of control. Printed information and literature was provided to the patient. Overall there is a one in 2500 failure rate. This can occur at any time after vasectomy. Risks were discussed highlighting hematoma, spermatocele, epididymal congestion, development of sperm antibodies, and development of chronic pain estimated between 1-5%. The procedure was reviewed in detail. Anatomical diagrams of the male genitalia were used to explain the location of the vas deferens. The vas deferens will be transected, the proximal end will be cauterized, a metal clip would be applied to separate the 2 vas deferens ends. It was explained the procedure will be done in the office and takes approximately 10-15 minutes. Less common problems that arise with vasectomy include hematoma, bleeding, allergic reaction to anesthetic, epididymal infection, epididymal congestion, scrotal discomfort, spermatic leak, spermatic granuloma and the possibility of antisperm antibodies. He understands these risks and wishes to proceed. Consent was signed at the office today. He also understands that it takes 12 weeks for sperm to fully clear the system. He will need to provide a semen sample at 12 weeks and if this is not clear a 2nd sample at 16 weeks. Medical clearance to stop using protection will only be provided if he satisfies published criteria for sperm clearance. [facility] Surgical History No pertinent past surgical history Family History Mother No problems noted. Father High blood pressure Social History Housing: House Patient Tobacco Use Status: Never used Tobacco service: No Current occupational status: employed Current occupation: [employer] Current occupational exposures/hazards: No Cognitive needs: No Hearing needs: No Vision needs: Yes Review of Systems Const All systems reviewed & are unremarkable except as noted in HPI and below Physical Exam Const General: cooperative, healthy appearing, comfortable, no acute distress, well developed, alert and awake Nutritional Appearance: overweight Orientation/consciousness: patient oriented x3 Limitations: no limitations HEENT Head: Yes normal to inspection, Yes normocephalic and Yes atraumatic Ears: hearing grossly normal bilaterally Eyes General: appearance normal, both eyes and all related structures Neck Neck: Yes normal visual inspection and Yes trachea midline Chest Chest palpation & inspection: normal inspection of the chest Resp Effort & Inspection: normal respiratory effort and able to speak in complete sentences Cardio Rate: regular rate GI Inspection: Yes normal to inspection General: Yes no CVA tenderness Back/Spine/Pelvis Back: no CVA tenderness Skin General skin exam: no rashes or lesions noted Neuro General: patient oriented x3 Extrem General: Yes normal to inspection Psych Appearance: grossly normal and well kempt Mental Status: mental status grossly normal Speech and movement: Normal speech and movement present and Clear speech present Affect: normal affect Attitude: cooperative Thought process: Normal thought process present Thought content: Normal thought content present Insight: Fair insight present (Psych) Judgement: Fair judgement present (Psych) Office Procedures Post Void Residual Post Residual Void Post Void Residual (PVR): 0 43227-Upcn Void Residual by ultrasound Results AMB Urinalysis, Automated UA Leukoctes 0 Devang/uL Last Edit by NAHUN Vizcarra on 12/10/24 16:00 UA Nitrite Negative Last Edit by NAHUN Vizcarra on 12/10/24 16:00 UA Urobilinogen 0.2 mg/dL Last Edit by NAHUN Vizcarra on 12/10/24 16:00 UA Protein 15 mg/dL Last Edit by NAHUN Vizcarra on 12/10/24 16:00 UA pH 6.0 Last Edit by NAHUN Vizcarra on 12/10/24 16:00 UA Blood 200 Samy/uL Last Edit by NAHUN Vizcarra on 12/10/24 16:00 UA Specific [place] 1.025 Last Edit by NAHUN Vizcarra on 12/10/24 16:00 UA Ketone Negative Last Edit by NAHUN Vizcarra on 12/10/24 16:00 UA Bilirubin 0 mg/dL Last Edit by NAHUN Vizcarra on 12/10/24 16:00 UA Glucose 0 mg/dL Last Edit by NAHUN Vizcarra on 12/10/24 16:00 Results Reviewed Results Reviewed: Laboratory Last Values Urine pH (Auto) 6.0 12/10/24 15:59 Specific [place] (Auto) 1.025 12/10/24 15:59 Urine Protein (Auto) 15 mg/dL 12/10/24 15:59 Glucose (UA)(Auto) 0 mg/dL 12/10/24 15:59 Urine Ketones (Auto) Negative 12/10/24 15:59 Urine Blood (Auto) 200 Samy/uL 12/10/24 15:59 Urine Nitrite (Auto) Negative 12/10/24 15:59 Urine Bilirubin (Auto) 0 mg/dL 12/10/24 15:59 Urine Urobilinogen (Auto) 0.2 mg/dL 12/10/24 15:59 Leukocyte Esterase (Auto) 0 Devang/uL 12/10/24 15:59 Assessment & Plan Assessment & Plan (1) Microscopic hematuria: Code(s): R31.29 - Other microscopic hematuria Category: Medical (2) Vasectomy evaluation: Code(s): Z30.09 - Encounter for other general counseling and advice on contraception Category: Medical (3) Anxiety about health: Code(s): R45.89 - Other symptoms and signs involving emotional state Category: Medical Plan In office urinalysis results reviewed with the patient today; as noted above; will send for urine cytology. We did discussed potential causes of microscopic hematuria as well as further interventions and risks and benefits of these interventions. All questions were answered. He currently denies any bothersome urinary issues or concerns. He reports be happy with current voiding parameters. Will obtain CT urogram for further assessment evaluation. BUN and creatinine ordered for imaging. Consent was obtained for vasectomy Vasectomy was discussed in detail; as noted above. We discussed semen analysis in office verses fellows kit. Prescriptions provided we discussed importance of bringing medication to office day of procedure. Will schedule for in office cystoscopy with imaging to be completed prior Will schedule for in office vasectomy after further assessment evaluation of microscopic hematuria Follow-up per doctor's orders; or sooner with any issues, concerns, and or questions. Orders: Orders AMB Urinalysis Automated Today Z13.9 - Encounter for screening, unspecified Urine Cytology Today R31.29 - Other microscopic hematuria Blood Urea Nitrogen Today R39.15 - Urgency of urination Creatinine Today R39.15 - Urgency of urination CT urogram Today R31.0 - Gross hematuria Medications: New diazepam (Valium) take one tab when arrive for procedure 2 mg PO DAILY 2 tabs 0RF anxiety R45.89 - Other symptoms and signs involving emotional state tramadol Bringing medication to office day of procedure 50 mg PO Q8H PRN 9 tabs 0RF pain 3 days Patient Instructions: The patient had an opportunity to ask questions regarding the treatment plan. All questions were answered. Physical exam, labs, and imaging were discussed and reviewed in detail. As well as risks, benefits, and discussion of treatment choices. No major barriers to understanding were identified. The patient expressed understanding and agreement with the above treatment plan. The patient was made aware they should contact our office by phone for worsening of their current condition, the appearance of new symptoms, or with any questions or concerns. Compliance is encouraged with any medications and follow up testing that is ordered. It is a privilege to be allowed the opportunity to participate in? your urological care.? Again, if you have any questions or concerns If you have any questions or concerns please do not hesitate to contact me. The office is [phone]. This note is constructed using voice recognition software. While every effort has been made to ensure accuracy calcine furnace loader errors may have been included. Yours sincerely, DEB Mahoney Coding Level of Care Code New Pt Level 4 (59378) Diagnoses Microscopic hematuria R31.29 Vasectomy evaluation Z30.09 Anxiety about health R45.89 CPT Codes Post Residual Void - PVR CPT Code: 64152-Hjwn Void Residual by ultrasound ([id number])
== END 2024-12-10 16:16 | disposition home or self-care (01) ==
LOC: HO.HUSH 15:19
PROVIDERS: PCP Nurse Practitioner Family; Visit Provider Nurse Practitioner Family
DX: R31.29 Other microscopic hematuria (principal); Z30.09 Encounter for other general counseling and advice on contraception; R45.89 Other symptoms and signs involving emotional state; Z13.9 Encounter for screening, unspecified
CPT/HCPCS: 99204

== ENCOUNTER 2024-12-10 15:19 | Outpatient (REF) | payer BC, SELFPAY | END 2024-12-10 15:20 | disposition home or self-care (01) | LOC: HO.LAB 15:19 | PROVIDERS: PCP Nurse Practitioner Family; Visit Provider Nurse Practitioner Family | DX: R31.0 Gross hematuria (principal); R45.89 Other symptoms and signs involving emotional state; R39.15 Urgency of urination; Z30.09 Encounter for other general counseling and advice on contraception | CPT/HCPCS: 51798; 81003; 88112 ==

== ENCOUNTER 2025-01-30 09:51 | Outpatient (AMB) | payer BC, SELFPAY ==
--- NOTE | 2025-01-30 09:53 | A.OFFVIS_ITS ---
Intake Visit Reasons: Cystoscopy/labs Intake Note: Patient is present for CYSTOSCOPY Urology Medication:NONE Antibiotic Allergy:NONE Blood Thinner:NONE CT IMAGING SCHEDULED FOR 02/11/2025 Glass Engraver Required: No Accompanied by: Self / Same As Patient Allergies bee pollen (bee stings) Allergy (Verified 01/30/25 09:55) Hives HPI Comments Details: Michael is a pleasant 39-year-old male patient of Dr. Willis. He presents to the office today as a new patient for microscopic hematuria as well as vasectomy evaluation. He reports noting over the last couple years he has been told he has had microscopic hematuria. He reports most recently as followed up with his PCP and recommendations were made for urology referral for further assessment evaluation. 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 He denies any known workplace chemical exposure. In office urinalysis results reviewed with the patient today 3+ microscopic hematuria. Imaging Complete Cystoscopy today normal Plan vasectomy Vasectomy evaluation The patient presents for vasectomy consultation.? 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 [facility] Surgical History No pertinent past surgical history Family History Mother No problems noted. Father High blood pressure Social History Housing: House Patient Tobacco Use Status: Never used Tobacco service: No Current occupational status: employed Current occupation: [employer] Current occupational exposures/hazards: No Cognitive needs: No Hearing needs: No Vision needs: Yes Office Procedures Cystoscopy Consent Discussed risk and benefit or proposed procedure with the patient. Information consent for procedure given to the patient. Discussed technical aspects, risks, benefits and alternatives in full. Addressed all of the patient's questions and concerns regarding the procedure. The patient demonstrated knowledge and understanding. They wish to proceed with this procedure. Preparation The patient was prepped in the usual manner. A sed high school teacher was present and in the room. Genitalia was prepped with betadine solution in a sterile manner. Lidocaine Jelly 2% was placed into the urethra and 16Fr flexible Olympus cys toscope was inserted into the meatus after adequate lubrication. Procedure Consent confirmed Cystoscopy performed using a disposable Urovue digital 16 Croatian cystoscope. Meatus circumcised Urethra anterior and posterior urethra normal Prostatic Urethra unremarkable Bladder examination with retroflexion of cystoscope Bladder Orifices normal shape and position Bladder Capacity Normal Trabeculations Grade 0 Cellule Formation None Diverticulum Formation None Mucosal Erythema Bladder Tumor None 27261-[id number] DISPOSABLE SCOPE URO-G FLEXIBLE SCOPE Procedure code (CPT) selection complete Office Meds lidocaine HCl 2 % mucosal jelly in applicator Performing Provider: Rod Larios MD Performing Location: [facility] Administered by: Andrés Albright LPN on 01/30/25 10:13 Dose Route Admin Location Dispensed Lot Number Expiration Date [facility] B2B Outside Sales Representative 10 mL intra-urethral 10 mL nitrofurantoin monohydrate/macrocrystals 100 mg capsule Performing Provider: Rod Larios MD Performing Location: [facility] Administered by: Andrés Albright LPN on 01/30/25 10:13 Dose Route Admin Location Dispensed Lot Number Expiration Date [place] B2B Outside Sales Representative 100 mg PO 1 cap Results AMB Urinalysis, Automated UA Leukoctes 0 Devang/uL Last Edit by Tati Thompson CCM on 01/30/25 10:06 UA Nitrite Negative Last Edit by Tati Thompson [facility] on 01/30/25 10:06 UA Urobilinogen 0.2 mg/dL Last Edit by Tati Thompson [facility] on 01/30/25 10:06 UA Protein 0 mg/dL Last Edit by Tati Thompson [facility] on 01/30/25 10:06 UA pH 6.0 Last Edit by Tati Thompson [facility] on 01/30/25 10:06 UA Blood 200 Samy/uL Last Edit by Tati Thompson [facility] on 01/30/25 10:06 UA Specific [place] 1.020 Last Edit by Tati Thompson [facility] on 01/30/25 10:0 6 UA Ketone Negative Last Edit by Tati Thompson [facility] on 01/30/25 10:06 UA Bilirubin 0 mg/dL Last Edit by NAHUN Rey on 01/30/25 10:06 UA Glucose 0 mg/dL Last Edit by NAHUN Rey on 01/30/25 10:06 Results Reviewed Results Reviewed: Laboratory Last Values Urine pH (Auto) 6.0 01/30/25 10:06 Specific [place] (Auto) 1.020 01/30/25 10:06 Urine Protein (Auto) 0 mg/dL 01/30/25 10:06 Glucose (UA)(Auto) 0 mg/dL 01/30/25 10:06 Urine Ketones (Auto) Negative 01/30/25 10:06 Urine Blood (Auto) 200 Samy/uL 01/30/25 10:06 Urine Nitrite (Auto) Negative 01/30/25 10:06 Urine Bilirubin (Auto) 0 mg/dL 01/30/25 10:06 Urine Urobilinogen (Auto) 0.2 mg/dL 01/30/25 10:06 Leukocyte Esterase (Auto) 0 Devang/uL 01/30/25 10:06 Assessment & Plan Assessment & Plan (1) Microscopic hematuria: Code(s): R31.29 - Other microscopic hematuria Category: Medical Plan Follow-up vasectomy Orders: Orders AMB Cystoscopy 01/30/25 R31.29 - Other microscopic hematuria Urine Cytology 01/30/25 R31.29 - Other microscopic hematuria Patient Instructions: This note is constructed using voice recognition software. While every effort has been made to ensure accuracy heavy equipment engine mechanic errors may have been included. Imaging studies, laboratory and physical exam results were discussed and reviewed in detail. No major barriers to patient understanding were identified. An opportunity to ask questions regarding the treatment plan was provided. All questions were answered. The patient expressed understanding and agreement with the above treatment plan. The patient is aware they should contact our office by phone for worsening of their current condition or the appearance of new urologic symptoms. Compliance is encouraged with any medications and followup testing that is ordered. It is a privilege to participate in the urologic care of your patient. If you have any questions or concerns regarding treatment for the above conditions, or other urologic issues, please do not hesitate to contact me. The office telephone contact is [phone]. Sincerely, Dr Rod Larios MD, [facility] - Urology Compassionate Specialist Care for the Genitourinary System Coding Level of Care Code Est Pt Level 3 (51681) Diagnoses Microscopic hematuria R31.29 CPT Codes Cystoscopy - CPT: 32241-Rehmltfstp ([id number])
== END 2025-01-30 10:40 | disposition home or self-care (01) ==
LOC: HO.HUSH 09:51
PROVIDERS: PCP Nurse Practitioner Family; Visit Provider Urology
DX: R31.29 Other microscopic hematuria (principal)
CPT/HCPCS: 52000; 99213

== ENCOUNTER 2025-01-30 09:51 | Outpatient (REF) | payer BC, SELFPAY ==
--- OUTSIDE RECORDS SUMMARY | 2025-01-30 14:56 | XMS_ITS | Data Portability ---
Author Organization [facility]EREZ [facility], [address] Address [address] [place] [phone] Care Team Providers Care Handbag Designer Name Role Phone [facility] Primary Care Provider Assessment No assessment recorded. Plan of Treatment Reminders Order Date Submit Date Provider Last Modified By Organization Details Last Modified Time Details Appointments None recorded. Lab None recorded. Referral None recorded. Procedures None recorded. Surgeries None recorded. Imaging None recorded. Medication Orders ciprofloxac in 0.3 % eye drops 2022 023 [facility] #[id number], [address] [place], [address], 09:37:27 Patient TargetsNo targets recorded. Patient Instructions Encounter Date Encounter Id Patient Instructions Last Modified By Organization Details Last Modified Time 10/10/2022 [id number] pinkeye: care instructions [email or web address] Not available 10/10/2022 09:37:58 Allergic Conjunctivitis: Care Instructions [email or web address] Not available 10/10/2022 09:37:58 Aside from havin [...] Follow-up with your doctor or return to [facility] for evaluation if no improvement in 2 days. Cool compresses to your eyes may help reduce the swelling. Seek Emergency Medical evaluation for any worsening symptoms. [email or web address] Not available 10/10/2022 09:41:02 Reason for Referral [...] blood by Pulse oximetry Heart rate Systolic And Diastolic Provider Name and Address Organization Details Last Updated DateTime 3 172.72 cm 33.5 kg/m2 03391.3 2 g 16 /min 98.1 [degF] 96 % 96 % 74 /min 133/93 mm[Hg] LEIGHANN MARINELLI [place] - [facility] 3 09:01:09 Social History Question Answer Notes LastModified by [employer] Details LastModified Time Which Illicit Or Recreational Drugs Have You Used? Tyler [email or web address] Information not available 10/10/2022 Sex: Unknown Functional Status Question Answer Note LastModified by [employer] Details LastModified Time How many times per week do you consume alcohol? 1-2 times per week [email or web address] Information not available 10/10/2022 Do you use any illicit or recreational drugs? Yes [email or web address] Information not available 10/10/2022 Do you or have you ever used any other forms of tobacco or nicotine? No [email or web address] Information not available 10/10/2022 What is your level of alcohol consumption? Moderate [email or web address] Information not available 10/10/2022 Mental Status None recorded. Family History Nothing Reported. Medical History Condition Response Gout N Cancer, liver N Thyroid disorder N Hyperthyroidism N Rheumatoid arthritis N GI bleeding N Irritable bowel syndrome N COPD N Depression N Tinnitus, unspecified ear N Pneumonia N Cancer, uterus N Mental disorder, NOS N Headaches/Migraines N Insomia N Alzheimer's disease N Anxiety Disorder N Obesity N Arthritis N Cancer N Stroke N Alcohol abuse N Liver disease N Allergy Food/Medication N Cancer, bladder N Peripheral artery disease N Oxygen dependence [...] Disorder kidney N Sickle Cell Anemia N Cancer, ovarian N Pollard's Palsy N Disorder of eye N Cancer, prostate [...] Diagnosis SNOMED-CT Code Diagnosis ICD10 Code Diagnosis IMO Codes Diagnosis Note [id number] [address] [address] 06/19/2017 14:46:56 06/19/2017 15:29:52 [id number] Erika Peace MD [address] [facility] [address] [place] [address] 10/10/2022 08:23:27 10/10/2022 09:44:56 Acute conjunctivitis of bilateral eyes [id number] 39020 H10.33 Health Concerns Section Related Observation LastModified by Organization Detai ls LastModified Time None Recorded Concern Status LastModified by Organization Details LastModified Time None Recorded Advance Directives Directive None Recorded Payers Insurance Date Sequence Insurance Name Policy Number Policy Flower Covered Member ID Flower Member ID Guarantor Name 10/27/2022 1 [place] [id number] Michael B Dubuc [id number] Michael Dubuc 10/27/2022 1 [place] [facility] (HMO) [id number] Michael B Dubuc [id number] Michael Dubuc Notes Date Note Type Note Provider Name and Address Organization Details Recorded Time 10/11/19 23 text/htm l Eye problemsReported by PatientHPIFor eye symptoms, patient reportsrednessanddischargebut reportsno sensitivity to light,no pain in the eyes, andno blurred vision(irritation. mild itching.). For source of patient information, patient reportsinformation obtained from patientandpatient arrived at urgent care ambulatory. For location, patient reportsbilateral. For severity, patient reportsmoderate. For onset/timing, patient [id number]. For modifying factors, patient reportsnothing gives relief(used son's polytrim eye drops last night and this morning without improvement.). For context, (son recently had pink-eye. worked in yard yesterday. no foreign body sensation, eye trauma, contact lens use or chemical exposure.).36 year old male presenting for evaluation of [...] chemical exposure. No photophobia. Erika Peace MD [address] [facility] [address], [place], [address], [place] - [facility] 10/10/2022 09:48:20
== END 2025-01-30 09:52 | disposition home or self-care (01) ==
LOC: HO.LAB 09:51
PROVIDERS: PCP Nurse Practitioner Family; Visit Provider Urology
DX: R31.29 Other microscopic hematuria (principal)
CPT/HCPCS: 52000; 88112

== ENCOUNTER 2025-02-11 15:14 | Outpatient (REF) | payer BC, SELFPAY ==
--- NOTE | ~2025-02-11 | CT_ITS ---
EXAMINATION: CT ABDOMEN AND PELVIS WITHOUT AND WITH CONTRAST CLINICAL INFORMATION: R31.0 - Gross hematuria COMPARISON: Renal ultrasound November 08, 2018 TECHNIQUE: Noncontrast CT of the abdomen and pelvis is performed followed by split bolus contrast-enhanced images using 85 mL Omnipaque 350 contrast. Postcontrast imaging is performed during the combined nephrogram and excretion phase. Sagittal and coronal reformatted images were obtained on the technologist's workstation for both the precontrast and postcontrast phases. This CT examination was performed using dose optimization techniques as appropriate, variously including the following: *Automated exposure control *Adjustment of mA and/or kV according to patient size (this includes techniques or standardized protocols for targeted exams where dose is matched to indication/reason for exam; i.e. extremities or head) *Use of iterative reconstruction technique FINDINGS: LUNG BASES: The visualized lung bases are unremarkable. LIVER, GALLBLADDER, AND BILIARY TREE: The liver is normal in size, shape, and attenuation. No focal hepatic lesion or biliary ductal dilatation is present. The gallbladder is unremarkable with no evidence of radiopaque gallstones, gallbladder wall thickening, or obvious pericholecystic inflammatory changes. PANCREAS: There is mild heterogeneity with decreased attenuation in the head and neck region of the pancreas. There are measures -22 Hounsfield units. SPLEEN: Unremarkable. ADRENAL GLANDS: Unremarkable. KIDNEYS AND URETERS: There are no stones no hydronephrosis. After contrast contrast, there is symmetric concentration and excretion into the urinary tract. No mass or other abnormality is evident. BLADDER: Unremarkable. GASTROINTESTINAL TRACT: The small and large bowel are unremarkable. The appendix is unremarkable. There is an 18 mm lesion, left of the bladder, within mesentery, just inferior to descending sigmoid colon junction. It measures 1-6 Hounsfield units and does not enhance consistent with a cyst. ABDOMINAL WALL: Small umbilical hernia contains adipose tissue. LYMPH NODES: There is no adenopathy. VASCULAR: Unremarkable. PELVIC VISCERA: Unremarkable. OSSEUS STRUCTURES: Unremarkable. CT/CT urogram IMPRESSION: No significant renal or urinary tract abnormality. There is subtle heterogeneity and hypodensity in the pancreatic head and neck without clear mass probably related to focal fatty infiltration. Electronically signed by: Jono Ferreira MD 02/11/2025 04:53 PM [facility]
[2025-02-11] MEDS: iohexoL 350 MG/ML 100 ML INFUS..BTL 85 ML IV (16:08)
--- OUTSIDE RECORDS SUMMARY | 2025-02-11 16:58 | XMS_ITS | Data Portability ---
Author Organization PEREZ Lester [facility], [address] Address [address] [place] [phone] Care Team Providers Care Optoelectronics Engineer Name Role Phone [facility] Primary Care Provider [phone] Assessment No assessment recorded. Plan of Treatment Reminders Order Date Submit Date Provider Last Modified By Organization Details Last Modified Time Details Appointments None recorded. Lab None recorded. Referral None recorded. Procedures None recorded. Surgeries None recorded. Imaging None recorded. Medication Orders ciprofloxac in 0.3 % eye drops 2022 023 [facility]/Pharmacy #[id number], [address] [place], [address], 09:37:27 Patient TargetsNo targets recorded. Patient Instructions Encounter Date Encounter Id Patient Instructions Last Modified By Organization Details Last Modified Time 10/10/2022 [id number] pinkeye: care instructions [email or web address] Not available 10/10/2022 09:37:58 Allergic Conjunctivitis: Care Instructions [email or web address] Not available 10/10/2022 09:37:58 Aside from havin [...] Follow-up with your doctor or return to [facility] for evaluation if no improvement in 2 days. Cool compresses to your eyes may help reduce the swelling. Seek Emergency Medical evaluation for any worsening symptoms. [email or web address] Not available 10/10/2022 09:41:02 Reason for Referral [...] Updated DateTime 3 172.72 cm 33.5 kg/m2 97292.3 2 g 16 /min 98.1 [degF] 96 % 96 % 74 /min 133/93 mm[Hg] LEIGHANN MARINELLI PA - [facility] 3 09:01:09 Social History Question Answer Notes LastModified by [employer] Details LastModified Time Which Illicit Or Recreational Drugs Have You Used? Tyler Information not available 10/10/2022 Sex: Unknown Functional Status Question Answer Note LastModified by [employer] Details LastModified Time How many times per week do you consume alcohol? 1-2 times per week [email or web address] Information not available 10/10/2022 Do you use any illicit or recreational drugs? Yes [email or web address] Information not available 10/10/2022 Do you or have you ever used any other forms of tobacco or nicotine? No [email or web address] Information not available 10/10/2022 What is your level of alcohol consumption? Moderate Information not available 10/10/2022 Mental Status None recorded. Family History Nothing Reported. Medical History Condition Response Gout N Cancer, liver N Thyroid disorder N Hyperthyroidism N Rheumatoid arthritis N GI bleeding N Irritable bowel syndrome N COPD N Depression N Pneumonia N Tinnitus, unspecified ear N Cancer, uterus N Mental disorder, NOS [...] N Joint disorder, unspecified N Menopause N Drug dependence, unspecified N Back disorder N Hypothyroidism N Disorder kidney N Sickle Cell Anemia N Cancer, ovarian N Pollard's Palsy N Disorder of eye N Cancer, prostate N Allergy Seasonal N Drug abuse N Disorder of urinary system N Disorder of lymph system N Radiculopathy, site unspecified N Myoneural disorder, unspecified N Nervous system disorder N ADHD N High Cholesterol N Post-herpetic neuralgia N Aneurysm, cerebral N Tinnitus, left ear N Prostate hypertrophy, benign N Disorder of skin/subcutaneous N Osteoarthritis N Disorder of ear N Ovarian cysts N Parkinson's disease N Low back pain N Carpal tunnel syndrome N Disorder of muscle N Anemia N Kidney stone N Bipolar affective disorder N Leukemia, unspecified N Diabetes N Endocrine disorder N Disorder involving the immune mechanism N Seizure N Hyperlipidemia N Lymphoma N Emphysema, unspecified N Eczema N Diverticulitis N Dementia N Lupus N Seizure disorder N Reflux/GERD N Sleep Apnea N Cancer, bone N Disorder of thyroid N Cardiac arrhythmia, unspecified N Disorder of bone N Heart Disease N Liver Disorder N Disorder of brain N Hypertension N Aneurysm, aortic N Osteoporosis N Gastroesophageal reflux (GERD) N Disease of digestive system, unspecified N Past Encounters Encounter ID Performer Location Encounter Start Date Encounter Closed Date Diagnosis/Indication Diagnosis SNOMED-CT Code Diagnosis ICD10 Code Diagnosis IMO Codes Diagnosis Note [id number] [address] [address] 06/19/2017 14:46:56 06/19/2017 15:29:52 [id number] Erika Peace MD [address] [facility] [address] [place] [address] 10/10/2022 08:23:27 10/10/2022 09:44:56 Acute conjunctivitis of bilateral eyes [id number] 79847 H10.33 Health Concerns Section Related Observation LastModified by Organization Detai ls LastModified Time None Recorded Concern Status LastModified by Organization Details LastModified Time None Recorded Advance Directives Directive None Recorded Payers Insurance Date Sequence Insurance Name Policy Number Policy Flower Covered Member ID Flower Member ID Guarantor Name 10/27/2022 1 [place] [id number] Michael B Dubuc [id number] Michael Dubuc 10/27/2022 1 [place] [facility] (HMO) [id number] Michael B Dubuc [id number] 31 Michael Dubuc Notes Date Note Type [...] For severity, patient reportsmoderate. For onset/timing, patient [id number]. For modifying factors, patient reportsnothing gives relief(used [...] exposure. No photophobia. Erika Peace MD [address] [facility] [address], [place], [address], [place] - [facility] 10/10/2022 09:48:20
== END 2025-02-11 15:15 | disposition home or self-care (01) ==
LOC: HO.CT 15:14
PROVIDERS: PCP Nurse Practitioner Family; Visit Provider Nurse Practitioner Family
DX: R31.0 Gross hematuria (principal)
CPT/HCPCS: 74178; Q9967

== ENCOUNTER → 2025-02-11 15:16 | Outpatient (BNV) | payer BC, SELFPAY | PROVIDERS: PCP Nurse Practitioner Family; Visit Provider Radiology Diagnostic Radiology | DX: R31.0 Gross hematuria (principal) | CPT/HCPCS: 74178 ==